=== PATIENT | female | born 1945 | race Caucasian/White ===

== ENCOUNTER 2018-01-28 20:59 | Emergency (ER) | payer OTHER ==
[2018-01-28 21:37] VITALS: BP 165/72; PULSE 93; TEMP 97.2; BMI 29.2
--- NOTE | 2018-01-28 22:26 | PDOC ---
History of Present Illness - General History Source: Patient Exam Limitations: No Limitations - History of Present Illness Initial Comments: 01/29/18 00:35 The patient is a 72 year old female with a significant past medical history of diabetes who presents to the emergency department for evaluation of 3 day history of vaginal bleeding. The patient reports intermittent episodes of mild vaginal bleeding since 2-3 days. The patient denies history of anemia. The patient denies chest pain, shortness of breath, headache, and dizziness. Denies fevers, chills, nausea, vomiting, diarrhea, and constipation. Denies dysuria, frequency, urgency, and hematuria. Allergies: NKA Social history: No reported cigarette, alcohol, or drug use. <Wong Andrade - Last Filed: 01/29/18 00:32> <Ibis Goldberg - Last Filed: 01/29/18 00:55> - General Chief Complaint: Vaginal Bleeding Stated Complaint: VAGINAL BLEEDING Time Seen by Provider: 01/28/18 22:12 Past History <Wong Andrade - Last Filed: 01/29/18 00:32> - Suicide/Smoking/Psychosocial Hx Smoking History: Never smoked Have you smoked in the past 12 months: No Information on smoking cessation initiated: No Hx Alcohol Use: No Drug/Substance Use Hx: No <Ibis Goldberg - Last Filed: 01/29/18 00:55> - Past Medical History Allergies/Adverse Reactions: Allergies Allergy/AdvReac Type Severity Reaction Status Date / Time No Known Allergies Allergy Verified 01/28/18 21:36 Review of Systems - Review of Systems Able to Perform ROS?: Yes Comments:: CONSTITUTIONAL: Absent: fever, chills, diaphoresis, generalized weakness, malaise, loss of appetite HEENT: Absent: rhinorrhea, nasal congestion, throat pain, throat swelling, difficulty swallowing, mouth swelling, ear pain, eye pain, visual Changes CARDIOVASCULAR: Absent: chest pain, syncope, palpitations, irregular heart rate, lightheadedness , peripheral edema RESPIRATORY: Absent: cough, shortness of breath, dyspnea with exertion, orthopnea, wheezing, stridor, hemoptysis GASTROINTESTINAL: Absent: abdominal pain, abdominal distension, nausea, vomiting, diarrhea, constipation, melena, hematochezia GENITOURINARY: Absent: dysuria, frequency, urgency, hesitancy, hematuria, flank pain, genital pain MUSCULOSKELETAL: Absent: myalgia, arthralgia, joint swelling SKIN: Absent: rash, itching, pallor HEMATOLOGIC/IMMUNOLOGIC: Absent: easy bleeding, easy bruising, lymphadenopathy, frequent infections ENDOCRINE: Absent: unexplained weight gain, unexplained weight loss, heat intolerance, cold intolerance NEUROLOGIC: Absent: headache, focal weakness or paresthesias, dizziness, unsteady gait, seizure, mental status changes, bladder or bowel incontinence PSYCHIATRIC: Absent: anxiety, depression, suicidal or homicidal ideation, hallucinations. <Wong Andrade - Last Filed: 01/29/18 00:32> *Physical Exam - Vital Signs Last Vital Signs Temp Pulse Resp BP Pulse Ox 97.2 F L 93 H 18 165/72 97 01/28/18 21:36 01/28/18 21:36 01/28/18 21:36 01/28/18 21:36 01/28/18 21:36 - Physical Exam Comments: GENERAL: Well developed, well nourished. Awake and alert. No acute distress. HEENT: Normocephalic, atraumatic. PERRLA, EOMI. No conjunctival pallor. Sclera are non- icteric. Moist mucous membranes. Oropharynx is clear. NECK: Supple. Full ROM. No JVD. Carotid pulses 2+ and symmetric, without bruits. No thyromegaly. No lymphadenopathy. CARDIOVASCULAR: Regular rate and rhythm. No murmurs, rubs, or gallops. Distal pulses are 2+ and symmetric. PULMONARY: No evidence of respiratory distress. Lungs clear to auscultation bilaterally. No wheezing, rales or rhonchi. ABDOMINAL: Soft. Non-tender. Non-distended. No rebound or guarding. No organomegaly. Normoactive bowel sounds. MUSCULOSKELETAL Normal range of motion at all joints. No bony deformities or tenderness. No CVA tenderness. EXTREMITIES: No cyanosis. No clubbing. No edema. No calf tenderness. SKIN: Warm and dry. Normal capillary refill. No rashes. No jaundice. NEUROLOGICAL: Alert, awake, appropriate. Cranial nerves 2-12 intact. No deficits to light touch and temperature in face, upper extremities and lower extremities. No motor deficits in the in face, upper extremities and lower extremities. Normoreflexic in the upper and lower extremities. Normal speech. Toes are down- going bilaterally. PSYCHIATRIC: Cooperative. Good eye contact. Appropriate mood and affect. <Wong Andrade - Last Filed: 01/29/18 00:32> - Vital Signs Last Vital Signs Temp Pulse Resp BP Pulse Ox 97.2 F L 93 H 18 165/72 97 01/28/18 21:36 01/28/18 21:36 01/28/18 21:36 01/28/18 21:36 01/28/18 21:36 <Ibis Goldberg - Last Filed: 01/29/18 00:55> ED Treatment Course - LABORATORY CBC & Chemistry Diagram: 01/28/18 22:36 - ADDITIONAL ORDERS Additional order review: Laboratory Results 01/29/18 00:01 Urine Color Yellow Urine Appearance Clear Urine pH 6.0 Ur Specific [place] 1.029 Urine Protein 1+ H Urine Glucose (UA) 3+ H Urine Ketones Trace H Urine Blood 1+ H Urine Nitrite Negative Urine Bilirubin Negative Urine Urobilinogen Normal Ur Leukocyte Esterase Trace Urine WBC (Auto) 7 Urine RBC (Auto) 9 Ur Epithelial Cells Rare 01/28/18 22:36 RBC 3.76 MCV 88.0 MCHC 34.4 RDW 12.5 MPV 7.3 L Neutrophils % 58.1 Lymphocytes % 31.2 Monocytes % 8.6 Eosinophils % 1.1 Basophils % 1.0 <Wong Andrade - Last Filed: 01/29/18 00:32> - LABORATORY CBC & Chemistry Diagram: 01/28/18 22:36 <Ibis Goldberg - Last Filed: 01/29/18 00:55> *DC/Admit/Observation/Transfer - Attestations Scribe Attestion: Documentation prepared by Wong Andrade, acting as medical csr for Ibis Goldberg MD. 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
[2018-01-28 22:39] LABS: EOS % 1.1 % (0-4.5); HEMATOCRIT 33.1 % (32.4-45.2); HEMOGLOBIN 11.4 GM/dL (10.7-15.3); LYMPH % 31.2 % (8-40); MCH 30.3 pg (25.7-33.7); MCHC 34.4 g/dl (32.0-36.0); MEAN PLT VOLUME 7.3 fl (7.5-11.1); MONO % 8.6 % (3.8-10.2); NEUT % 58.1 % (42.8-82.8); PLATELET COUNT 325 K/MM3 (134-434); RBC 3.76 M/mm3 (3.60-5.2); RDW 12.5 % (11.6-15.6)
[2018-01-29 00:21] LABS: URINE APPEARANCE CLEAR; URINE BILIRUBIN NEGATIVE (<2.0 mg/dL); URINE COLOR YELLOW; URINE GLUCOSE (UA) 3+ (NEGATIVE); URINE KETONE TRACE (NEGATIVE); URINE PROTEIN 1+ (NEGATIVE); URINE UROBILINOGEN NORMAL mg/dL (0.2-1.0)
[2018-01-29 00:22] LABS: EPI CELLS RARE /HPF (FEW); URINE LEUK ESTERASE TRACE (NEGATIVE); URINE NITRITE NEGATIVE (NEGATIVE)
== END 2018-01-29 01:14 | disposition home or self-care (01) ==
LOC: JER 20:59
DX: N93.8 Other specified abnormal uterine and vaginal bleeding (principal); E11.9 Type 2 diabetes mellitus without complications
CPT/HCPCS: 36415; 76830-TC; 81003; 81015; 85025; 99283-25